=== PATIENT | female | born 1950 | race Caucasian/White ===

== ENCOUNTER 2019-04-12 12:22 | Observation (INO) | payer MEDICARE ==
[~2019-04-12] VITALS: Ht 172.7 cm; Wt 98.2 kg
[~2019-04-12 12:22] MED LIST: ACET-709 PO; LEVO200T5 PO
[2019-04-12 12:59] LABS: BASOPHILS # (AUTO) 0.03 x10^3/uL (0-0.1); BASOPHILS % (AUTO) 0 % (0-1); EOSINOPHILS # (AUTO) 0.39 x10^3/uL (0-0.4); EOSINOPHILS % (AUTO) 5 % (1-7); LYMPHOCYTES # (AUTO) 3.26 x10^3/uL (1-3.4); LYMPHOCYTES % (AUTO) 43 % (22-44); MD NO; MEAN CORPUSCULAR HGB CONC 32.2 g/dL (32.4-35.8); MEAN CORPUSCULAR VOLUME 87.1 fL (80-100); MEAN PLATELET VOLUME 8.5 fL (7.4-10.4); MONOCYTES # (AUTO) 0.47 x10^3/uL (0.2-0.8); MONOCYTES % (AUTO) 6 % (2-9); NEUTROPHILS # (AUTO) 3.52 x10^3/uL (1.8-6.8); NEUTROPHILS % (AUTO) 46 % (42-75); PLATELET COUNT 404 x10^3/uL (130-400); RED BLOOD COUNT 5.37 x10^6/uL (3.82-5.3); RED CELL DISTRIBUTION WIDTH 14.1 % (9.6-15.2)
[2019-04-12] MEDS ORDERED: ASPIRIN 81 MG TABLET CHEW PO ONE (13:00)
[2019-04-12 13:11] LABS: ANION GAP 6 mmol/L (5-15); CALCIUM 9.3 mg/dL (8.5-10.1); CHLORIDE 107 mmol/L (98-107); CREATININE 1.02 mg/dL (0.55-1.02)
[2019-04-12 13:14] LABS: TROPONIN I < 0.015 ng/mL (0.000-0.045)
--- NOTE | 2019-04-12 14:04 | NUR ---
FROM LOBBY TO ROOM AT THIS TIME
--- NOTE | 2019-04-12 14:10 | NUR ---
pt to room from [facility], changed into gown, responds approp to staff, NAD, comfort measures provided, ricaer at BS, call light within reach; cardiac, NIBP & SpO2 monitors in place.
[2019-04-12] MEDS ORDERED: TRAM50TA2 PO (14:11)
[2019-04-12] MEDS ORDERED: ASPIRIN 81 MG TABLET CHEW ONE (14:15)
--- NOTE | 2019-04-12 14:41 | NUR ---
Mary meek in [facility] - 04/12/19 at 1510 by ZURI pt to MRI
--- NOTE | 2019-04-12 15:00 | NUR ---
pt upright on gurney awake & comfortable, responds approp to staff, NAD, comfort measures provided, call light within reach.
--- NOTE | 2019-04-12 16:02 | NUR ---
Pt to be admitted to [facility], room 511-1. Report called to Lupis.
[2019-04-12 16:52] VITALS: BP 121/75
[2019-04-12] MEDS ORDERED: ACETAMINOPHEN 325 MG TABLET PO PRN (17:30)
[2019-04-12] MEDS ORDERED: DOCUSATE 100 MG CAPSULE PO PRN (17:30)
[2019-04-12] MEDS ORDERED: NITROGLYCERIN 0.4 MG BOTTLE (25 TABS) SL PRN (17:30)
[2019-04-12] MEDS ORDERED: ONDANSETRON 2MG/ML, 2ML IVPush PRN (17:30)
[2019-04-12] MEDS ORDERED: NITROGLYCERIN 0.4 MG/SPRAY SL PRN (17:30)
[2019-04-12 18:57] LABS: FREE T4 (FREE THYROXINE) 0.95 ng/dL (0.76-1.46); TROPONIN I < 0.015 ng/mL (0.000-0.045)
[2019-04-12 19:27] VITALS: BP 149/93
[2019-04-12] MEDS: HEPARIN 5,000 UNITS/ML, 1ML SQ SCH (20:50)
[2019-04-12] MEDS ORDERED: ZOLPIDEM 5MG TABLET PO ONE (21:00)
[2019-04-12] MEDS: FAMOTIDINE 20 MG TABLET PO SCH (21:27)
[2019-04-12 23:31] LABS: TROPONIN I < 0.015 ng/mL (0.000-0.045)
[2019-04-13] MEDS: HEPARIN 5,000 UNITS/ML, 1ML SQ SCH ×2 (00:07→13:00)
[2019-04-13 02:20] VITALS: BP 108/71
[2019-04-13 05:08] LABS: BASOPHILS # (AUTO) 0.05 x10^3/uL (0-0.1); BASOPHILS % (AUTO) 1 % (0-1); EOSINOPHILS # (AUTO) 0.42 x10^3/uL (0-0.4); EOSINOPHILS % (AUTO) 6 % (1-7); LYMPHOCYTES # (AUTO) 2.73 x10^3/uL (1-3.4); LYMPHOCYTES % (AUTO) 38 % (22-44); MD NO; MEAN CORPUSCULAR HEMOGLOBIN 28.4 pg (27.0-34.8); MEAN CORPUSCULAR HGB CONC 32.6 g/dL (32.4-35.8); MEAN CORPUSCULAR VOLUME 87.1 fL (80-100); MEAN PLATELET VOLUME 8.5 fL (7.4-10.4); MONOCYTES # (AUTO) 0.59 x10^3/uL (0.2-0.8); MONOCYTES % (AUTO) 8 % (2-9); NEUTROPHILS # (AUTO) 3.35 x10^3/uL (1.8-6.8); NEUTROPHILS % (AUTO) 47 % (42-75); PLATELET COUNT 343 x10^3/uL (130-400); RED BLOOD COUNT 5.07 x10^6/uL (3.82-5.3); RED CELL DISTRIBUTION WIDTH 14.2 % (9.6-15.2)
[2019-04-13 05:22] LABS: CHLORIDE 111 mmol/L (98-107)
[2019-04-13 05:32] LABS: ALANINE AMINOTRANSFERASE 15 U/L (12-78); ALBUMIN 3.4 g/dL (3.4-5.0); ALKALINE PHOSPHATASE 81 U/L (45-117); ANION GAP 5 mmol/L (5-15); BILIRUBIN,TOTAL 0.6 mg/dL (0.2-1.0); CALCIUM 8.8 mg/dL (8.5-10.1); CHOL/HDL RATIO 4.9; CHOLESTEROL, TOTAL 239 mg/dL (140-239); CREATININE 0.98 mg/dL (0.55-1.02); HDL CHOL % 21 % (28-40); HDL CHOLESTEROL (DIRECT) 49 mg/dL (40-60); LDL CHOLESTEROL,CALCULATED 145 mg/dL (54-169); TOTAL PROTEIN 6.9 g/dL (6.4-8.2); TRIGLYCERIDES 223 mg/dL (50-200); VLDL CHOLESTEROL 45 mg/dL (0-25)
[2019-04-13 07:32] VITALS: BP 146/88
[2019-04-13] MEDS: FAMOTIDINE 20 MG TABLET PO SCH (08:07)
[2019-04-13] MEDS ORDERED: SENNA/DOCUSATE TABLET PO SCH (09:00)
[2019-04-13] MEDS ORDERED: APAP/CODEINE 300/30MG TABLET PO SCH ×2 (09:00→21:00)
[2019-04-13] MEDS ORDERED: ATOR-2 PO (14:32)
[2019-04-13 14:35] VITALS: BP 138/96
== END 2019-04-13 15:20 | disposition home or self-care (01) ==
LOC: ED 15:05 → EDIP 15:24 → INTOOBSV 15:24 → 5SO 16:38 → DCLOUNGE 04-13 15:10
PROVIDERS: ADMIT Internal Medicine; ATTEND Internal Medicine
DX: R07.89 Other chest pain (principal); R06.00 Dyspnea, unspecified; I50.32 Chronic diastolic (congestive) heart failure; I49.9 Cardiac arrhythmia, unspecified; E78.1 Pure hyperglyceridemia; E78.5 Hyperlipidemia, unspecified; M19.90 Unspecified osteoarthritis, unspecified site; G89.4 Chronic pain syndrome; I48.91 Unspecified atrial fibrillation; E07.81 Sick-euthyroid syndrome; E03.9 Hypothyroidism, unspecified; Z87.891 Personal history of nicotine dependence; Z96.651 Presence of right artificial knee joint; Z90.49 Acquired absence of other specified parts of digestive tract; Z90.89 Acquired absence of other organs
CPT/HCPCS: 36415; 71045; 78452; 80048; 80053; 80061; 82040; 82607; 83735; 83880; 84100; 84439; 84443; 84481; 84484; 85025; 85379; 93005; 93017; 93306; 99285; A9502; C9898; G0378